=== PATIENT | female | born 1945 | race Caucasian/White ===

== ENCOUNTER → 2016-12-03 | Outpatient (CLI) | payer MEDICARE, OTHER ==
--- NOTE | 2016-12-03 14:08 | MM ---
Reason for exam: additional evaluation requested from prior study. Last mammogram was performed 2 years and 2 months ago. History: Patient is postmenopausal, has history of breast cancer at age 56, and history of other cancer. Mastectomy of the left breast, 2003. Chemotherapy, 2003. Took hormonal contraceptives for 7 years beginning at age 20. Physical Findings: Dr. Moscoso did not find any significant physical abnormalities on exam. MG Diagnostic Mammo RT w CAD CC and MLO view(s) were taken of the right breast. Prior study comparison: October 18, 2014, right breast MG diagnostic mammo RT w CAD. January 12, 2013, right diagnostic mammogram w/CAD. The breast tissue is heterogeneously dense. This may lower the sensitivity of mammography. Finding: There are typically benign round calcifications in the right breast. There is no discrete abnormality. These results were verbally communicated with the patient and result sheet given to the patient on 12/03/16. ASSESSMENT: Benign, BI-RAD 2 RECOMMENDATION: Follow-up diagnostic mammogram of the right breast in 1 year.
--- NOTE | 2016-12-04 12:19 | WWHP ---
DATE OF SERVICE: 12/03/16 CHIEF COMPLAINT: The patient is here for her routine gynecological exam and mammogram. HPI: This is a 71 year old G2, P2 with an LMP of 2000 who is here for her routine gynecological exam and mammogram. The patient is without gynecological complaints and denies any post menopausal bleeding. PAST MEDICAL HISTORY: Atrial fibrillation, Type 2 diabetes with neuropathy, left breast cancer in 2004 status post left mastectomy and chemotherapy, restless leg syndrome and history of kidney stones. MEDICATIONS: 1. Metoprolol 50 mg b.i.d. 2. Eliquis 2.5 mg b.i.d. 3. Carbidopa/Levodopa 10/100 mg prn. 4. Metformin one b.i.d. ALLERGIES: SULFA. 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 SOCIAL HISTORY: She denies alcohol, tobacco or drug use. 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 REVIEW OF SYSTEMS: She has lost about 16 pounds over the last two years and this has been with diet changes. She denies respiratory, cardiac or GI problems. She denies maltreatment or falling. : She does have some problems with urinary leakage especially with coughing and sneezing. PHYSICAL EXAM: Blood pressure 118/68, height 5 feet 0 inches, weight 190 pounds. Temperature 94.6, pulse 75. This is a well developed and well nourished white female who is alert and oriented times three in no acute distress. HEENT: Within normal limits. Neck is supple without masses or thyromegaly. Chest and lungs clear to auscultation. Heart irregular rhythm consistent with atrial fibrillation and there are no significant murmurs noted at this time. Breast exam, the left side is consistent with previous mastectomy and there are no masses in this area. The right breast is without mass or discharge. Axillary exam is negative for adenopathy. Back is negative for CVA, tenderness. Abdomen obese, soft, nontender. There is a 0.8 cm small lump just below the skin just to the right and inferior to the umbilicus. This is nontender and there is no erythema. This is most likely consistent with either a small inclusion cyst or possible lipoma. This does not change in size according to the patient. There are no other abdominal masses or tenderness. Pelvic exam and external genitalia reveals mild atrophy without lesions. Cervix and vagina reveals mild atrophy without lesions and there is no evidence of prolapse. The uterus is mid position, non-gravid size and nontender. There are no palpable adnexal masses or tenderness. Bimanual examination is somewhat limited secondary to her size. Rectovaginal examination is negative for mass or tenderness but does reveal some external hemorrhoids which she has had for many years. These are noninflamed and nontender. The rectal exam is negative for mass or tenderness and is negative for occult blood. Extremities nontender. IMPRESSION: 1. 71 year old menopausal female with normal gynecological exam. 2. History of left breast cancer status post mastectomy with no evidence of recurrence. 3. Multiple medical problems. PLAN: 1. PAP smear was performed. 2. Self breast examination was discussed. 3. Mammogram on the right side will be done today. 4. Osteoporosis prevention was discussed. We will plan on repeating bone density testing in approximately 4 years since she had a normal one in 2014. 5. She does get flu shots in the fall. 6. She will return in one year. CORNELL
== END ==
LOC: WWCWWP 12:25
PROVIDERS: ATTEND Obstetrics & Gynecology
DX: Z08 Encounter for follow-up examination after completed treatment for malignant neoplasm (principal); Z85.3 Personal history of malignant neoplasm of breast

== ENCOUNTER → 2022-01-07 | Outpatient (CLI) | payer MEDICARE, OTHER ==
--- NOTE | 2022-01-07 15:35 | MM ---
Reason for Exam: Clinical finding. Last mammogram was performed 3 year(s) and 1 month(s) ago. Patient History: Menarche at age 14. First Full-Term at age 27. Postmenopausal. Other cancer. Breast cancer, age 56. Hormonal Contraceptives, starting at age 20 for 7 years. 2003, Mastectomy on the Left side. 2003, Chemotherapy. Prior Study Comparison: 10/18/2014 Right Diagnostic Mammogram, [facility]. 12/03/2016 Right Diagnostic Mammogram, [facility]. 11/24/2018 Bilateral Screening Mammogram, [facility]. Tissue Density: Right: The breast tissue is heterogeneously dense. This may lower the sensitivity of mammography. Findings: Analyzed By CAD. Asymmetric density laterally at a middle depth remains unchanged back to the 2017 exam. Few benign small renal cyst calcifications. No significant change from prior exams. Overall Assessment: Benign, BI-RAD 2 Management: Screening Mammogram of the right breast in 1 year. 1. Patient should continue monthly self breast exams. 2. A clinical breast exam by your physician is recommended on an annual basis. 3. This exam should not preclude additional follow-up of suspicious palpable abnormalities. Results were given to the patient verbally at the time of exam. Electronically signed and approved by: Matthew Soriano M.D. Radiologist
== END | disposition home or self-care (01) ==
LOC: RADMAMWWP 14:47
PROVIDERS: ATTEND Family Medicine
DX: Z78.0 Asymptomatic menopausal state (principal); Z85.3 Personal history of malignant neoplasm of breast
CPT/HCPCS: 77065; G0279; 77061

== ENCOUNTER → 2023-09-19 | Outpatient (CLI) | payer MEDICARE, OTHER ==
--- NOTE | 2023-09-22 08:35 | MM ---
Reason for Exam: Hx of breast cancer, mastectomy. Last mammogram was performed 1 year(s) and 8 month(s) ago. Patient History: Menarche at age 14. First Full-Term at age 27. Postmenopausal. Other cancer. Breast cancer, age 56. Hormonal Contraceptives, starting at age 20 for 7 years. 2003, Mastectomy on the Left side. 2003, Chemotherapy. Prior Study Comparison: 12/03/2016 Right Diagnostic Mammogram, [facility]. 11/24/2018 Bilateral Screening Mammogram, [facility]. 01/07/2022 Right MG diagnostic mammo RT w CAD, [facility]. Tissue Density: Right: There are scattered areas of fibroglandular density. Findings: Right breast: There is no suspicious group of microcalcifications or new suspicious mass. Benign-appearing calcifications left breast. Overall Assessment: Benign, BI-RAD 2 Management: Screening Mammogram of both breasts in [address] [facility] will attempt to contact patient to return for supplemental views and ultrasound if indicated. Patient should continue monthly self-breast exams. A clinical breast exam by your physician is recommended on an annual basis. This exam should not preclude additional follow-up of suspicious palpable abnormalities. Note on Vanessa scores and lifetime risk: 1. A Vanessa score greater than 3% is considered moderate risk. If this is the case, consider specialist referral to assess eligibility for a risk reducing agent. 2. If overall lifetime risk for the development of breast cancer is 20% or higher, the patient may qualify for future screening with alternating mammogram and breast MRI. Electronically signed and approved by: Ravindra Mendoza DO
--- NOTE | 2023-09-25 11:58 | BD ---
EXAMINATION TYPE: Axial Bone Density DATE OF EXAM: 09/19/2023 CLINICAL HISTORY: 78 years old Female. ICD-10 CODE: Z780 ASYMPTOMATIC BECKA STATE Height: 58.4 Weight: 152 FRAX RISK QUESTIONS: History of Fracture in Adulthood: yes 1. Type 1 Diabetes: type 2 3. Menopause before 45: no at 50s RISK FACTORS HISTORY OF: hx of left ankle early adult, hx of lt breast cancer, mastectomy, hx of chemo, MEDICATIONS: calcium in her multivitamin, bp meds, metformin, statin for cholesterol, meds for tremors, reflux me ds, NSAIDS, aspirin, topical steroid, osteoarthritis, hx of kidney stones, cellulitis with bruising 2 weeks ago. EXAM MEASUREMENTS: Bone mineral densitometry was performed using the [employer] System. Bone mineral density as measured about the Lumbar spine is: ----- L1-L4(G/cm2): 1.194 T Score Values are as follows: ----- L1: 0.4 ----- L2: 0.0 ----- L3: 0.5 ----- L4: -0.4 ----- L1-L4: 0.1 Z Score Values are as follows: ----- L1: 2.0 ----- L2: 1.6 ----- L3: 2.2 ----- L4: 1.2 ----- L1-L4: 1.8 Bone mineral density has: Increased 2.9% since study of: 10.21.2014 Bone mineral density about the R hip (g/cm2): 0.983 Bone mineral density about the L hip (g/cm2): 0.926 T Score values are as follows: -----R Neck: -0.3 -----L Neck: -1.1 -----R Total: -0.2 -----L Total: -0.7 Z Score values are as follows: -----R Neck: 1.6 -----L Neck: 0.8 -----R Total: 1.5 -----L Total: 1.1 Bone mineral density has: Decreased -15.4% since study of: 10.21.2014 FRAX%s: The graph provided illustrates a 15.2% chance for a major osteoporotic fx and a 2.3% chance f or the hips probability for fx in 10 years time. IMPRESSION: Osteopenia (T Score between -2.5 and -1). There is slightly increased risk of fracture and the patient may be considered for treatment. Re-Screen 2-5 years. NOTE: T-SCORE=SD OF THE YOUNG ADULT MEAN.
== END | disposition home or self-care (01) ==
LOC: RADMAMWWP 13:22
PROVIDERS: ATTEND Family Medicine
DX: Z12.31 Encounter for screening mammogram for malignant neoplasm of breast (principal); Z78.0 Asymptomatic menopausal state; Z85.3 Personal history of malignant neoplasm of breast
CPT/HCPCS: 77067; 77080

== ENCOUNTER → 2024-11-05 | Outpatient (CLI) | payer MEDICARE, OTHER ==
--- NOTE | 2024-11-05 13:58 | MM ---
Reason for Exam: Screening (asymptomatic). Last mammogram was performed 1 year(s) and 2 month(s) ago. Patient History: Menarche at age 14. First Full-Term at age 27. Postmenopausal. Other cancer. Breast cancer, age 56. Hormonal Contraceptives, starting at age 20 for 7 years. 2003, Mastectomy on the Left side. 2003, Chemotherapy. Prior Study Comparison: 11/24/2018 Bilateral Screening Mammogram, [facility]. 01/07/2022 Right MG diagnostic mammo RT w CAD, [facility]. 09/19/2023 Right MG 3D scr henry unilateral w/cad., [facility]. Tissue Density: Right: The breasts are heterogeneously dense, which may obscure small masses. Findings: Analyzed By CAD. There is no suspicious group of microcalcifications or new suspicious mass in either breast. Benign calcifications. Overall Assessment: Benign, BI-RAD 2 Management: Screening Mammogram of the right breast in 1 year. . Patient should continue monthly self-breast exams. A clinical breast exam by your physician is recommended on an annual basis. This exam should not preclude additional follow-up of suspicious palpable abnormalities. Note on Vanessa scores and lifetime risk: 1. A Vanessa score greater than 3% is considered moderate risk. If this is the case, consider specialist referral to assess eligibility for a risk reducing agent. 2. If overall lifetime risk for the development of breast cancer is 20% or higher, the patient may qualify for future screening with alternating mammogram and breast MRI. [facility], , 11/05/2024 1:54 PM. Electronically signed and approved by: Owen Fowler M.D. Radiologis
== END | disposition home or self-care (01) ==
LOC: RADMAMWWP 13:17
PROVIDERS: ATTEND Family Medicine
DX: Z12.31 Encounter for screening mammogram for malignant neoplasm of breast (principal); R92.333 Mammographic heterogeneous density, bilateral breasts; Z78.0 Asymptomatic menopausal state; Z92.0 Personal history of contraception; Z85.3 Personal history of malignant neoplasm of breast
CPT/HCPCS: 77067